=== PATIENT | male | born 1935 | race Caucasian/White ===

== ENCOUNTER 2021-01-07 11:10 | Emergency (ER) | payer OTHER ==
[~2021-01-07] VITALS: Ht 165 cm; Wt 54.2 kg
[2021-01-07] MEDS ORDERED: FLOMAX0.4 MG PO (11:36)
[2021-01-07] MEDS ORDERED: ARICEPT10 M1 PO (11:37)
[2021-01-07] MEDS ORDERED: LISINOPRIL10 MG PO (11:37)
[2021-01-07] MEDS ORDERED: SERTRALINE HCL100 MG PO (11:38)
[2021-01-07] MEDS ORDERED: LIPITOR10 MG PO (12:47)
[2021-01-07 15:45] VITALS: BP 157/71
== END 2021-01-07 15:51 ==
LOC: ER 11:10
PROVIDERS: Nurse Practitioner
DX: R46.89 Other symptoms and signs involving appearance and behavior (principal); Z20.822 Contact with and (suspected) exposure to COVID-19; F03.90 Unspecified dementia, unspecified severity, without behavioral disturbance, psychotic disturbance, mood disturbance, and anxiety; I10 Essential (primary) hypertension; Z79.1 Long term (current) use of non-steroidal anti-inflammatories (NSAID); Z79.899 Other long term (current) drug therapy

== ENCOUNTER 2021-01-07 12:51 | Inpatient (IN) | payer OTHER ==
[~2021-01-07] VITALS: Ht 162.6 cm; Wt 48.9 kg
[~2021-01-07 12:51] MED LIST: ARICEPT10 M1 PO; FLOMAX0.4 MG PO; LIPITOR10 MG PO; LISINOPRIL10 MG PO; SERTRALINE HCL100 MG PO
[2021-01-07 16:00] VITALS: BP 177/70
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
[2021-01-07 19:00] VITALS: BP 141/69
[2021-01-07 20:30] VITALS: BP 141/69
--- NOTE | 2021-01-08 02:04 | NUR ---
PATIENT SAT AT A TABLE IN THE DINING ROOM THIS EVENING WATCHING THE [employer] GAME. HE IS QUIET AND TO HIMSELF. HE ANSWERS QUESTIONS WHEN ASKED. HE IS A/0X1. PATIENT DENIES PAIN, SI/HI/AVH. HE WALKS WITHOUT ASSISTANCE WITH SLOW STEADY STEPS. PATIENT IS INCONTINENT OF URINE. INCONTINENCE CHECKS AND CHANGES PRN. PT RESTING IN BED. CALM AND COOPERATIVE. BED IN LOW POSITION AND BED ALARM IS ON. ROUTINE ROUNDS TO ASSESS SAFETY AND STATUS OF PATIENT.
[2021-01-08 06:03] LABS: CHOLESTEROL 233 mg/dL (<200); HDL CHOLESTEROL 34 mg/dL (>40); LDL CHOLESTEROL 161 mg/dL (<100); TC:HDL 6.9 Ratio (Not establshd); TRIGLYCERIDE 193 mg/dL (<150); VLDL 39 mg/dL (<40)
[2021-01-08 06:22] LABS: SERUM ASSESSMENT Clear
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
[2021-01-08 09:41] VITALS: BP 137/65
[2021-01-08 10:27] LABS: HEMATOCRIT 45.9 % (42.0-52.0); HEMOGLOBIN 15.3 gm/dL (14.0-18.0); MCH 32.2 pg (26.0-34.0); MCHC 33.5 g/dL (28.0-37.0); MCV 96.2 fL (80.0-100.0); RBC 4.77 mil/uL (4.50-6.00); RDW 14.1 % (10.5-14.5); WBC 9.1 thou/uL (4.0-11.0)
[2021-01-08 10:41] LABS: CREATININE 1.3 mg/dL (0.7-1.3)
--- NOTE | 2021-01-08 15:55 | NUR ---
Alert and orientated to name. Knows he is in hospital but does not know name. Denies SI/HI. Calm and compliant. Sitting in day room with peers most of day and participating in groups. Ambulates with slow, steady gait. Breath sounds clear. Reg HR auscultated. Color pink with brisk capillary refill and palpable peripheral pulses. No edema noted. Incontinent of yellow urine. Active bowel sounds over soft, flat abdomen. Cannot recall last BM but had smear of dried brown stool around anus. Currently in day room without s/o distress.
[2021-01-08 17:10] VITALS: BP 151/74
[2021-01-08 20:00] VITALS: BP 132/72
[2021-01-08 20:03] VITALS: BP 132/72
--- NOTE | 2021-01-08 23:49 | NUR ---
Pt was found in his room sitting in a chair at the beginning of the shift. He expressed that he didn't know who brought him to the hospital, who his doctor was, and why he was here. He was alert and oriented to self, location, and time, but disoriented to situation. Pt was reoriented to situation and did not recall the events once reoriented. Pt presented as calm, cooperative, and pleasant. He expressed worries and sadness due to being in the hospital and "not knowing what is going on". Emotional support given and pt encouraged to ask staff if he has any further questions or needs throughout the night. Pt was isolative to his room this shift, and shortly after went to bed. Pt was medication compliant, without difficulty. He ambulates independently and reported his last BM was tonight. Pt did not voice any physical complaints at this time, will continue to monitor.
[2021-01-09] VITALS (8 sets, daily range): BP systolic 98–153; BP diastolic 47–91
[2021-01-09 00:08] LABS: GLYCOHEMOGLOBIN (HGB A1C) 5.6 % (4.8-5.6)
--- NOTE | 2021-01-09 12:13 | NUR ---
HAS BEEN QUIET AND WITHDRAWN TO ROOM THIS AM-COMPLIENT WITH AM MEDICATIONS AND REQUESTS FROM NURSING STAFF. BLUNTED AFFECT AND DELAYED VERBAL RESPONSES. ORIENTED TO NAME ONLY. GAIT STEADY WITHOUT ASSISTIVE DEVICES.
--- NOTE | 2021-01-09 15:04 | NUR ---
NOTED TO BE SOMULENT AT 1775-[id number]-NRRK RESPOND INITIALLY TO VERBAL COMMANDS BUT ASSESSED AT 1415 TO BE RESPONDING TO PAINFUL STIMULI ONLY.VS AT 1400 101/51-P-70. SKIN W/D-02 SAT 97 PERCENT ON RA- NOTED WILL RESPOND TO PAINFUL STIMULI-[facility]-IV STARTED IN LEFT FOREARM AND 0.9 NS STARTED VIA PUMP AT 250CC/HR. THIS NURSE 1;1 WITH PT IN DAYROOM. BP RECHECK AT 1430 81/42 PULSE RATE 54-WILL CONTINUE WITH IV FLUIDS AND MONITOR BP PULSE Q 30.NURSING STAFF 1;1 WITH PT
--- NOTE | 2021-01-09 18:35 | NUR ---
IV SALINE LOCKED AT 1830-FLUSHES EASILY-PT TAKEN TO ROOM AND REQUIRES HEAVY ASSIST X 2 TO STAND VUT DID VOID APPROX 480CC IN URINAL-REMAINS SOMULENT BUT RESPONDS TO VERBAL COMMANDS. BP 144/69 P- 68 02 SAT 97 PERCENT ON RA
[2021-01-09 20:36] LABS: ANION GAP < 0 mmol/L (7-16); BUN 41 mg/dL (7-18); CHLORIDE 107 mmol/L (98-107); CO2 37 mmol/L (21-32); CREATININE 1.2 mg/dL (0.7-1.3); GLUCOSE 99 mg/dL (74-106); POTASSIUM 4.3 mmol/L (3.5-5.1); SODIUM 141 mmol/L (136-145)
[2021-01-10 05:34] LABS: HEMATOCRIT 43.4 % (42.0-52.0); HEMOGLOBIN 14.5 gm/dL (14.0-18.0); MCH 32.4 pg (26.0-34.0); MCHC 33.4 g/dL (28.0-37.0); RBC 4.47 mil/uL (4.50-6.00); RDW 14.1 % (10.5-14.5); WBC 8.3 thou/uL (4.0-11.0)
--- NOTE | 2021-01-10 05:46 | NUR ---
At the beginning of the shift Abel was lethargic but easily arousable. He would only grimace or moan, therefore he did not answer any assessment questions but was compliant with physical assessment. Pt urinated in a urinal in bed with help from staff at 1900. HS medications were held due to order per Dr. Greenwood due to sedation. Pt's last set of hourly vitals were at 1999 and were BP 127/91, HR 68, O2 98%, R 16, and T 97.1. Pt continued to sleep and vitals were spot checked again at 2230 and BP was 142/47, HR 55 and O2 97%. Pt was also incontinent of urine at that time and was cleaned up. Around 0100 pt's bed alarm went off and pt was assisted to the bathroom to urinate. Pt again returned to bed and alarm went off again around 0500 where pt's brief was incontinent and he also urinated in the toilet. At this time, pt was a little more alert and able to interact with this RN. Pt was able to respond appropriately to questions asked and was oriented to person, place, and time. Pt's IV was also removed during this shift as it was still in pt's right forearm from previous shift. Oral care was provided to pt as pt's mouth appeared very dry and a large cup of water was provided to pt. Pt was placed on high fall risk precautions this shift due to change in pt's status and pt being unsteady on his feet, almost falling over when trying to walk independently. COVID PCR was completed this morning and pt is currently resting in bed with bed alarm on, will continue to monitor.
[2021-01-10 06:10] LABS: CALCIUM 8.9 mg/dL (8.5-10.1); CREATININE 1.3 mg/dL (0.7-1.3); POTASSIUM 4.5 mmol/L (3.5-5.1)
--- NOTE | 2021-01-10 08:55 | EKG ---
[address] [address] ELECTROCARDIOGRAM REPORT Name: ISAAC ANDERSON Room #: 525A-A ADM IN M.R.#: [id number] Admission: 01/07/21 Attend Phys: Cruzito Greenwood DO Discharge: Date of : 37 Report #: [id number] [facility] Test Date: 2021-01-10 Test Time: 08:20:28 Pat Name: ISAAC ANDERSON [facility] Gender: M [employer] Technician: PEARL : 1935 Requested By: Cruzito Greenwood Order Number: [id number] MD: Kev Monge Measurements Intervals [place] Rate: 61 P: 21 NC: 153 QRS: 14 QRSD: 87 T: 58 QT: 411 QTc: 414 Interpretive Statements Sinus rhythm No significant abnormality No previous ECG available for comparison Electronically Signed On 01-10-2021 8:54:49 CDT by Kev Monge [email or web address] <ELECTRONICALLY SIGNED> By: Kev Monge MD, [facility] 01/10/21 0854 0820 9 Kev Monge MD, FAC /EPI
[2021-01-10 10:00] VITALS: BP 126/68
--- NOTE | 2021-01-10 14:50 | NUR ---
RESUMMED CARE FROM OVERNIGHT SHIFT THIS AM, PATIENT IN ROOM LYING QUIETLY. PATIENT ALERT ORIENTED TIMES 4 PATIENT ATE BREAKFAST TOOK MEDICATION WITHOUT INCIDENCE. PATIENT WALKED SELF TO THE BATHROOM DID HYGIENE HIMSELF, PATIENT DENIES SI/HI/AH/VH AT PRESENT. PATIENTS ABDOMEN SOFT BOWEL SOUNDS PRESENT PATIENTS LUNGS CLEAR. PATIENT CALM COOPERATIVE WILL CONTINUE TO MONITOR PATIENT FOR SAFETY AND BEHAVIORS.
[2021-01-10 19:59] VITALS: BP 151/103
[2021-01-10 21:06] LABS: SYPHILIS AB Non Reactive (Non Reactive)
[2021-01-10 22:52] VITALS: BP 127/55
--- NOTE | 2021-01-11 03:53 | NUR ---
Abel was alert and oriented to person, place, time, but disoriented to situation. He expressed feeling depressed becauase he missed his family and his . This RN asked pt if he has talked to his since being at the hospital and he denied that he has talked to her. This RN offered to call pt's and pt became tearful stating "just the thought is making me tear up". We attempted to call pt's but at that time pt thought she was already sleeping and left her a voicemail. This RN told pt that it would be passed in report to the oncoming nurse to help pt call his during the day time. Pt denied SI/HI/CLARKE. He was medication compliant without difficulty. He came out to the dayroom around 0030 and asked for snack which was provided to pt. Pt dinged his alternative call light around 0330 and asked what time it was and expressed feeling "restless but I'm ok"; he denied needing anything at that time. Pt presented as calm, cooperative, pleasant, and withdrawn this shift. He appeared comfortable and denied any physical complaints besides some constipation which he recieved a PRN mag hydroxide for; will continue to monitor.
[2021-01-11 10:25] VITALS: BP 117/52
--- NOTE | 2021-01-11 11:58 | NUR ---
LEYDA and Dr. Greenwood were spoke with the DPOA, Katelyn [phone], concerning discharge. The recommedation of 29/09 supervision was given. Katelyn has opted to hire cargivers in the home. Katelyn has been working with [facility]. Katelyn has not yet chose a provider. Discharge was set for 01/15/2021 @ 1300. Katelyn will be transporting the Pt. There were no other questions or concerns at this time
--- NOTE | 2021-01-11 12:03 | NUR ---
The Pt has a follow up appointment for psychiatry with Dr. Jose Daniel Wiseman on 02/20/2021 @ 1500. SW attempted to schuedule a hopital follow up with the Pt's PCP Dr. Ellis at the [facility], . However there were no open appointment until Mar 2021. A message was left for the nurse for a call back to see if they can fit the Pt in sooner. SW awaiting a phone call back
--- NOTE | 2021-01-11 13:55 | NUR ---
CALM AND COOPERATIVE THIS AM-MINIMALLY VERBAL DURING AM ASSESSMENT AND MED PASS BUT IS COMPLIENT WITH AM MEDS/PHYSICAL ASSESSMENT AND ATTENDING GROUP. ORIENTED TO PERSON,PLACE-NO TO DATE. BECOMES TEARFUL WHEN SPEAKING ABOUT -MESSAGE LEFT WITH SW RE IF ABLE TO CALL . DOES APPEAR [id number] UNCOMBED-HOWEVER CLOTHING IS CLEAN-INDEPENDENT IN AMBULATION AND TOILETING AND GAIT IS STEADY WITHOUT ASSISTVE DEVICES. MEDIUM FORMED BM THIS PM-BS ACTIVE X4-DENIES PAIN OR DISCOMFORT.
[2021-01-11 20:33] VITALS: BP 115/53
--- NOTE | 2021-01-12 04:02 | NUR ---
01-11-21 CARE TRANSFERRED 1899. LATER PT AAOX2, VSS, RR EVEN AND NONLABORED ON RA. PT DENIES SI/HI AND PAIN. PT CALM AND COOPERTIVE, AND REPORTED HE WAS TIRED. PT HAD NO DIFFICULTIES TAKING MEDICATIN WHOLE WITH WATER, ONE AT A TIME. PT WILL CONTINUE TO BE MONITOR PER [facility].
[2021-01-12 10:17] VITALS: BP 119/56
--- NOTE | 2021-01-12 14:29 | NUR ---
Assumed pt care at 0700. Pt was alert and oriented x4. Assessments completed, vss. lungs clear, active bowel sound. Denies si/hi, denies pain at this time. Took meds whole, no difficulty noted. Calm, pleasant and cooperative with care. Ambulates with a slow gait. Continent of bowel and bladder. Makes needs known to staff. Ate all meals. Pt is progressing towards d/c goals. At this time pt is in his room resting. Will continue to monitor pt.
--- NOTE | 2021-01-12 22:27 | NUR ---
At onset of shift pt was resting in bed asleep. This shift pt was alert and oriented x4. Affect was flat. Pt appeared depressed. Overall was calm, pleasant and cooperative. Withdrawn from peers and isolated to his room in the evening. Pt endorsed anxiety and is worried about his family members dying. Pt stated he does not know why he has this fear. Pt stated he hopes to return home soon to be with his . Pt denied SI, HI and AVH. Compliant with medications and vital signs. Will continue to monitor.
[2021-01-13 06:55] VITALS: BP 143/68
--- NOTE | 2021-01-13 11:51 | NUR ---
PATIENT CARE ASSUMED AT 0700. PATIENT IN BED WAWAKE WITH EYES OPENED, ALERT AND ORIENTED X3, ASSESSMENT COMPLETED WITH CLEAR BREATH SOUND, ACTIVE BOWEL SOUND WITH SOFT ABDOMEN, REGULAR HR, SKIN INTACT WITH NO EDEMA NOTED, PATIENT IS ABLE TO VERBALIZE NEEDS, DENIES SI/HI, WILL CONTINUE TO MONITOR PATIENT FOR SAFETY
[2021-01-13 13:54] LABS: ABSOLUTE NEUTROPHILS 4.7 thou/uL (1.4-8.2); BASOPHILS 0.6 % (0.0-2.0); EOSINOPHILS 2.6 % (0.0-3.0); HEMATOCRIT 43.4 % (42.0-52.0); HEMOGLOBIN 14.6 gm/dL (14.0-18.0); LYMPHOCYTES 24.4 % (24.0-44.0); MCH 32.4 pg (26.0-34.0); MCHC 33.6 g/dL (28.0-37.0); MCV 96.3 fL (80.0-100.0); PLATELET COUNT 212 thou/uL (150-400); POLYS 64.4 % (36.0-66.0); RBC 4.51 mil/uL (4.50-6.00); RDW 13.9 % (10.5-14.5); WBC 7.3 thou/uL (4.0-11.0)
[2021-01-13 14:14] LABS: CALCIUM 9.2 mg/dL (8.5-10.1); CREATININE 1.2 mg/dL (0.7-1.3); MAGNESIUM 2.4 mg/dL (1.8-2.4); PHOSPHORUS 3.2 mg/dL (2.6-4.7); POTASSIUM 4.4 mmol/L (3.5-5.1)
[2021-01-13 19:50] VITALS: BP 134/60
[2021-01-13 20:13] VITALS: BP 134/60
--- NOTE | 2021-01-14 03:05 | NUR ---
DANILO MAKI WAS RESUNED AT 1900. HE IS ALERT AND ORIENTED X3. ABLE TO VERBALIZE HIS NEEDS. LUNGS ARE CLEAR BS ACTIVE X4 QUADS. HE DENIES PAINS/SI/AVH/HI. HE IS CONTINIET OF BOWEL AND BLADDER. HE AMBULATES AND HE TOOK HIS MEDS WHOLE. LUNGS ARE CLEAR BS ACTIVE X4 QUAD.
--- NOTE | 2021-01-14 09:33 | NUR ---
01-14-2021--1040--Call from Deanne from the [facility]. She states patient's nurse has been on contact with her to see what sevices the [facility] will provide. (Her number at the [facility] is [phone]--ext [phone]. She also has a number at the [facility] in [place] (clinic number is [phone]). I explained we would determine when DC is and I would call her back. She state she thinks he will qualify for some assistance with home care through the [facility]. She stated she would need a referral from Dr. Greenwood. She also stated patient has an appointment (at [facility]) on January 28 at 1:00 PM for labs; February 04 at 2:30 PM with his PCP and February 20 at 3:00 PM to see the therapist. This information will be passed on to his SW or written on the [facility] papers if he leaves withoin the next couple days.
[2021-01-14 10:02] VITALS: BP 127/60
--- NOTE | 2021-01-14 13:53 | NUR ---
Assumed pt care at 0700. Pt was alert and oriented x4. Assessments completed, vss. Lungs clear, active bowel sound. Took meds whole, no difficulty noted. Ambulate with a slow gait. Calm, pleasant and cooperative with care. Continent of bowel and bladder. Denies si/hi. Denies pain at this time. Makes needs known to staff. At this time pt is in his room resting. Will continue to monitor.
[2021-01-14 20:12] VITALS: BP 130/71
--- NOTE | 2021-01-14 21:34 | NUR ---
Assumed care on 01/14/21 @ 1900, VSS afebrile, A&Ox4 Ambulates with a walker. Takes meds whole and cooperated with cares. Retired to bed @ HS. Will continue to monitor for safety and comfort as per unit protocol.
[2021-01-15] MEDS ORDERED: DEPAKOTE ER250 MG PO (10:06)
[2021-01-15] MEDS ORDERED: B-12500 MCG PO (10:08)
[2021-01-15 11:09] VITALS: BP 130/71
--- NOTE | 2021-01-15 13:22 | NUR ---
Assumed pt care at 0700. Pt was alert and oriented x4. Assessments completed, vss. Lungs clear, active bowel sound. Took meds whole, no difficulty noted. Ambulates with a steady gait. Denies si/hi, Denies pain. No sign of acute distress noted upon assessments. Continent of bowel and bladder. Makes needs known to staff. Pt was D/C at 1315 to family via w/c. Pt was d/c with d/c instrution, and belongings. PT exit via front entrance. [facility]
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
== END 2021-01-15 13:15 | disposition home health service (06) | DRG 56 ==
LOC: SBH 12:51
PROVIDERS: Hospitalist; Internal Medicine; ADMIT Psychiatry & Neurology Psychiatry; ATTEND Psychiatry & Neurology Psychiatry
DX: G30.9 Alzheimer's disease, unspecified (principal); F02.81 Dementia in other diseases classified elsewhere, unspecified severity, with behavioral disturbance; E43 Unspecified severe protein-calorie malnutrition; F01.51 Vascular dementia, unspecified severity, with behavioral disturbance; Z68.1 Body mass index [BMI] 19.9 or less, adult; Z20.822 Contact with and (suspected) exposure to COVID-19; I10 Essential (primary) hypertension; E78.5 Hyperlipidemia, unspecified; N40.0 Benign prostatic hyperplasia without lower urinary tract symptoms; Z79.899 Other long term (current) drug therapy; Z23 Encounter for immunization
CPT/HCPCS: 10880